=== PATIENT | male | born 1940 | race Caucasian/White ===

== ENCOUNTER 2016-07-08 09:55 | Outpatient (CLI) | payer MEDICARE, OTHER ==
[~2016-07-08] VITALS: Ht 175.3 cm; Wt 88.2 kg
--- NOTE | ~2016-07-08 | HEMODYNAMI ---
PATIENT:EDWIGE BUCKNER MEDICAL RECORD: [id number] : 44 LOCATION:[facility] ADMISSION DATE: 07/08/16 Generatedon:07/08/201613:11 Patient name: EDWIGE BUCKNER Patient #: [id number] SSN: : 1940 Date of study: 07/08/2016 Page: Of Hemodynamic Procedure Report Patient Data Patient Demographics Procedure consent was obtained First Name: EDWIGE Gender: Male Last Name: SITA : 1940 Middle Initial: A Age: 75 year(s) Patient #: [id number] Race: Unknown Additional ID: [id number] Contact details Address: [address] [place] [address] State: [place] City: [facility] [place] Zip code: [address] Past Medical History History of disease Date Diagnosis Comments CAD Allergies: No known allergies Admission Admission Data Admission Date: 07/08/2016 Admission Time: 9:55 Height (in.): 69 Height (cm.): 175.26 Lab Results Lab Result Date: 07/08/2016 Lab Result Time: 0:00 Biochemistry Name Units Result Min Max BUN mg/dl 12 --(-*--)-- 7 18 Creatinine mg/dl 1.2 --(---*)-- 0.6 1.3 CBC Name Units Result Min Max Hemoglobin g/dl 16.1 --(--*-)-- 13.5 17.5 Procedure Procedure Types Cath Procedure Diagnostic Procedure LHC LHC w/Coronaries w/Grafts Miscellaneous Procedures Moderate Sedation up to 15 minutes Procedure Description Procedure Date Procedure Date: 07/08/2016 Procedure Start Time: 13:01 Procedure End Time: 13:08 Procedure Staff Name Function Matt Carlin MD Performing Physician Dieter Mohr RT Scrub Kathie Dill RN Nurse Carlos Magallon RT Monitor Procedure Data Cath Procedure Fluoroscopy Diagnostic fluoroscopy Total fluoroscopy Time: 1.7 time: 1.7 min min Diagnostic fluoroscopy Total fluoroscopy dose: 331 dose: 331 mGy mGy Contrast Material Contrast Material Type Amount (ml) Isovue 300 66 Entry Location Entry Primary Successful Side Size Upsize Upsize Entry Closure Succes sful Closure Location (Fr) 1 (Fr) 2 (Fr) Remarks Device Remarks Femoral Right 5 Fr Vascade artery Closure System Diagnostic catheters Device Type Used For End Catheter Placement Cordis 5Fr Pigtail LV Angiography Catheter (MP) Cordis 5Fr JL 4.0 Left Coronary Catheter (MP) Angiography Cordis 5Fr 3DRC Catheter SVG Angiography (MP) Diagnostic Infinity 5Fr SVG Angiography AR 2 MOD catheter Procedure Complications No complications Procedure Medications Medication Administration Route Dosage Oxygen NC 2 l/min Heparin Flush Bag added to field 2 bags (1000units/500ml NS) Lidocaine 2% added to field 20 Versed I.V. 1 mg Fentanyl I.V. 50 mcg Versed I.V. 1 mg Fentanyl I.V. 50 mcg Versed I.V. 0.5 mg Fentanyl I.V. 50 mcg Hemodynamics Rest HGB: 16.1 (g/dl) Heart Rate: 81 (bpm) Snapshots Pre Cath Intra NCS Post Cath Vital Signs Time Heart Resp SPO2 NIBP (mmHg) Rhythm Pain Sedation Rate (ipm) (%) Status Level (bpm) 12:45:39 71 16 100 153/93(136) NSR 0 (11) 10(A) , No pain 12:49:51 75 15 100 143/91(124) NSR 0 (11) 10(A) , No pain 12:54:07 76 17 97 138/79(107) NSR 0 (11) 10(A) , No pain 12:58:25 76 16 97 124/71(104) NSR 0 (11) 10(A) , No pain 13:02:37 79 16 99 123/74(92) NSR 0 (11) 10(A) , No pain 13:06:43 87 16 98 133/83(118) NSR 0 (11) 10(A) , No pain 13:08:52 86 18 98 142/82(116) NSR 0 (11) 10(A) , No pain Medications Time Medication Route Dose Verified Delivered Reason Notes Effec tiveness by by 12:47:04 Oxygen NC 2 Matt Vázquez Per l/min Tesfaye Dill RN physician 12:47:11 Heparin Flush added 2 Matt Gutierrez used for Bag to bags Tesfaye Carlin MD procedure (1000units/500ml field NS) 12:47:17 Lidocaine 2% added 20ml Matt Matt used for to vial Tesfaye Carlin MD procedure field 12:55:02 Versed I.V. 1 mg Matt Kathie for Tesfaye Dill RN sedation 12:55:07 Fentanyl I.V. 50 Matt Kathie for mcg Tesfaye Dill RN sedation 12:57:10 Versed I.V. 1 mg Matt Kathie for Tesfaye Dill RN sedation 12:57:13 Fentanyl I.V. 50 Matt Kathie for mcg Tesfaye Dill RN sedation 12:59:15 Versed I.V. 0.5 Matt Kathie for mg Tesfaye Dill RN sedation 12:59:31 Fentanyl I.V. 50 Matt Kathie for mcg Tesfaye Dill RN sedation Procedure Log Time Note 12:30:13 Dieter Mohr RT(R) sent for patient. Start room use. 12:34:00 ACC Patient presents with Stable Angina CCS Anginal Class 2--Slight limitation of ordinary activity. 12:34:02 Diagnostic Cath status Elective 12:34:21 Time tracking: Regular hours 12:34:26 Plan of Care:Hemodynamics will remain stable., Cardiac rhythm will remain stable., Comfort level will be maintained., Respiratory function will remain adequate., Patient/ family verbilizes understanding of procedure., Procedure tolerated without complication., Recovers from procedure without complications.. 12:37:57 Patient allergic to No known allergies 12:38:14 Patient Height : 175.26 inches 12:42:29 Patient received from Pre/Post Procedure Room to CCL 2 Alert and oriented. Tansferred to table in Supine position. 12:42:31 Warm blankets applied, and roberto hugger turned on for patient comfort. 12:42:31 Correct patient and procedure confirmed by team. 12:42:32 Signed procedure consent form obtained from patient. 12:42:33 ECG and BP/O2 sat monitors applied to patient. 12:44:34 Vital chart was started 12:47:04 Oxygen 2 l/min NC was given by Kathie Dill RN; Per physician; 12:47:11 Heparin Flush Bag (1000units/500ml NS) 2 bags added to field was given by Matt Carlin MD; used for procedure; 12:47:17 Lidocaine 2% 20ml vial added to field was given by Matt Carlin MD; used for procedure; 12:50:43 Baseline sample Acquired. 12:50:45 Rhythm: sinus rhythm 12:50:46 Full Disclosure recording started 12:51:02 H&P Date Dictated: 06/30/2016 Within 30 days and on chart., H&P Addendum completed by physician on day of procedure. (MUST COMPLETE FOR ALL OUTPATIENTS). 12:51:03 Pre-procedure instructions explained to patient. 12:51:04 Pre-op teaching completed and patient verbalized understanding. 12:51:06 Family in waiting room. 12:51:08 Patient NPO since Midnight. 12:51:09 Is the patient allergic to Iodine/contrast media? No. 12:51:12 Is patient on blood thinner?Yes 12:51:17 ACC The patient was administered the following blood thiners within the last 24 hours: ACCPlavix 12:51:54 Patient diabetic? No. 12:51:55 ----Pre-sedation anethsthesia assessment.---- 12:51:58 Previous problem with sedation/anesthesia? No ? 12:52:00 Snore? Yes 12:52:01 Sleep apnea? No 12:52:02 Deviated septum? No 12:52:03 Opens mouth fully? Yes 12:52:04 Sticks out tongue? Yes 12:52:07 Airway obstruction? No ? 12:52:08 Dentures? No ? 12:52:11 Pre procedure: right dorsailis pedis pulse 1+ Palpable, but thready & weak; easily obliterated 12:52:13 Patient pain scale 0/10 ?. 12:52:19 IV patent on arrival in left antecubital with 0.9% NaCl at 10ml/hr. 12:52:41 Lab Result : BUN 12 mg/dl 12:52:41 Lab Result : Creatinine 1.2 mg/dl 12:52:41 Lab Result : Hemoglobin 16.1 g/dl 12:52:47 Lab results completed and on chart. 12:52:51 Right groin area was prepped with chlora-prep and draped in sterile fashion 12:52:52 Alarms reviewed by R. N. 12:52:52 Sharps counted by scrub and verified by R.N. 12:53:00 Use device set Femoral Dx 12:53:02 Acist Syringe opened to sterile field. 12:53:02 Bag Decanter opened to sterile field. 12:53:02 Medline Cath Pack opened to sterile field. 12:53:03 Terumo 5Fr [place] Sheath opened to sterile field. 12:53:03 St Allan 260cm J .035 wire opened to sterile field. 12:53:05 Acist Hand Control opened to sterile field. 12:53:05 Acist Manifold opened to sterile field. 12:53:06 Diagnostic Infinity 5Fr Multipack catheter opened to sterile field. 12:53:07 Tegaderm 4 x 4 opened to sterile field. 12:54:49 --------ALL STOP TIME OUT------ 12:54:50 Final Timeout: patient, procedure, and site verified with staff and physician. All members of the team are in agreement. 12:54:51 Right groin site verified by team. 12:54:54 Physical assessment completed. ASA score P 2 - A patient with mild systemic disease as per Matt Carlin MD. 12:54:57 Sedation plan: IV Moderate Sedation Versed, Fentanyl 12:55:02 Versed 1 mg I.V. was given by Kathie Dill RN; for sedation; 12:55:07 Fentanyl 50 mcg I.V. was given by Kathie Dill RN; for sedation; 12:57:10 Versed 1 mg I.V. was given by Kathie Dill RN; for sedation; 12:57:13 Fentanyl 50 mcg I.V. was given by Kathiekeon Dill RN; for sedation; 12:59:15 Versed 0.5 mg I.V. was given by Kathiekeon Dill RN; for sedation; 12:59:31 Fentanyl 50 mcg I.V. was given by Kathie Dill RN; for sedation; 13:01:15 Procedure started. 13:01:23 Local anesthetic to right femoral artery with Lidocaine 2% by Matt Carlin MD.INITIAL ACCESS ONLY 13:01:30 A 5 Fr sheath was inserted into the Right Femoral artery 13:01:42 A Cordis 5Fr Pigtail Catheter (MP) was advanced over the wire and used for LV Angiography. 13:01:51 LV angiography performed. 13:01:53 LV gram done using CALDWELL 13:01:58 EF : 50 % 13:02:00 Catheter removed. 13:02:16 A Cordis 5Fr JL 4.0 Catheter (MP) was advanced over the wire and used for Left Coronary Angiography. 13:02:19 LCA angiography performed. 13:02:56 Catheter removed. 13:03:06 A Cordis 5Fr 3DRC Catheter (MP) was advanced over the wire and used for SVG Angiography. 13:03:10 BOTELLO to LAD angiography performed. 13:04:06 RCA angiography performed. 13:04:17 Catheter removed. 13:04:23 A Diagnostic Infinity 5Fr AR 2 MOD catheter was advanced over the wire and used for SVG Angiography. 13:05:03 SVG to Circ angiography performed. 13:05:27 SVG to RCA angiography performed. 13:05:30 Catheter removed. 13:05:36 Contrast amount:Isovue 300 66ml. 13:05:47 Sheath removed intact; hemostasis achieved with Vascade Closure System to the Right Femoral artery. 13:05:56 Vascade 5Fr Closure Device opened to sterile field. 13:06:03 Procedure ended.(Physican Out) 13:06:29 Fluoroscopy time 01.70 minutes. 13:06:33 Fluoroscopy dose: 331 mGy 13:06:33 Flurop Dose total: 331 13:06:35 Sharps counted by scrub and verified by R.N. 13:06:37 Insertion/operative site no bleeding no hematoma. 13:06:40 Post-op/insertion site Right Femoral artery dressed using a 4 x 4 and Tegaderm. 13:06:43 Post right femoral artery:stable 13:06:45 Post Procedure Pulses reassessed and unchanged 13:06:49 Post procedure rhythm: sinus rhythm 13:06:51 Post procedure instruction explained to patient.Patient verbalizes understanding. 13:07:33 Procedure type changed to Cath procedure, Diagnostic procedure, LHC, LHC w/Coronaries w/Grafts, Miscellaneous Procedures, Moderate Sedation up to 15 minutes 13:08:04 Procedure and supply charges have been captured, reviewed, submitted and are correct. 13:08:08 Procedure Complication : No complications 13:08:10 Vital chart was stopped 13:08:11 See physician's report for complete and final results. 13:08:12 Report given to Pre/Post Procedure Room. 13:08:16 Patient transfered to Pre/Post Procedure Room with Stretcher. 13:08:18 Procedure ended. 13:08:18 Full Disclosure recording stopped 13:08:20 End room use (Document Last) Device Usage Item Name Manufacture Quantity Catalog Number Hospital Part Current Minima l Lot# / Charge Number Stock Stock Serial# Code Acist Acist 1 [id number] 182629 148930 249082 20 Syringe Medical [employer] Inc Bag Microtek 1 2002S 198860 57845 725702 5 Decanter Medical Inc. Medline Cardinal 1 [id number] 380348 83420 544028 5 Cath Pack Health Terumo 5Fr Terumo 1 [id number] 052969 543297 749214 [address] Allan 1 [id number] 235423 805819 242036 30 260cm J .035 wire Acist Hand Acist 1 27965 192630 026669 536655 5 Control Medical Systems Inc Acist Acist 1 46700 792158 451596 787170 5 Manifold Medical Systems Inc Diagnostic Cardinal 1 [id number] 384875 14753 508534 30 Infinity Health 5Fr Multipack catheter Tegaderm 4 3M 1 1626W 443602 703064 263571 5 x 4 Cordis 5Fr Cardinal 1 139721 5 Pigtail Health Catheter (MP) Cordis 5Fr Cardinal 1 769050 5 JL 4.0 Health Catheter (MP) Cordis 5Fr Cardinal 1 623315 5 3DRC Health Catheter (MP) Diagnostic Cardinal 1 [id number] 103570 034050 194108 20 Infinity Health 5Fr AR 2 MOD catheter Vascade Cardiva 1 [id number] 850304 78715 735050 10 5Fr Medical, Closure Inc. Device Signature Audit Crockett Stage Time Signature Unsigned Intra-Procedure 07/08/2016 Carlos Magallon 1:11:54 PM RT(R) Signatures Monitor : Carlos Magallon RT Signature : Date : Time : [facility] [address] [place] [address]
[~2016-07-08 09:55] MED LIST: ASPIRIN 81 MG E81 MG PO; CIPRO500 MG PO; CORDARONE200 MG PO; FLAGYL500 MG PO; HEMOCYTE PLUS1 CAP PO; IMDUR30 MG PO; NIASPAN1000 MG PO; NORCO 5/325 TAB1 TA1 PO; PEPCID20 MG PO; PLAVIX75 MG PO; PRAVACHOL80 MG PO; PREVALITE POWD231 GM PO; PROTONIX40 MG PO; ZEBETA5 MG PO
[2016-07-08] MEDS ORDERED: HYDROCHLOROTHIA25 MG GT (10:09)
[2016-07-08] MEDS ORDERED: PLAVIX75 MG PO (10:11)
[2016-07-08 10:18] VITALS: BP 137/78; Ht 175.3 cm; Wt 88.2 kg
[2016-07-08 10:30] LABS: BASOPHILS 0.5 % (0.0-2.0); EOSINOPHILS 3.2 % (0-7); HEMATOCRIT 46.3 % (42.0-54.0); HEMOGLOBIN 16.1 g/dL (13.5-17.5); IMMATURE GRANULOCYTES 0.3 % (0-5); LYMPHOCYTES 22.4 % (15-50); MCH 29.4 pg (26.0-34.0); MCHC 34.8 g/dL (31.0-37.0); MCV 84.5 fL (80.0-100.0); MEAN PLATELET VOLUME 10.7 fL (7.4-10.4); MONOCYTES 11.5 % (2-11); NEUTROPHILS 62.1 % (40-80); PLATELET COUNT 150 10x3/uL (130-400); RBC 5.48 10x6/uL (4.20-6.10); RDW 13.2 % (11.5-14.5); WBC 6.3 10x3/uL (4.8-10.8)
[2016-07-08 10:44] LABS: CALCIUM 9.1 mg/dL (8.5-10.1); CARBON DIOXIDE 30.9 mmol/L (21.0-32.0); CREATININE - SERUM 1.2 mg/dL (0.6-1.3); POTASSIUM - SERUM 3.9 mmol/L (3.5-5.1)
--- NOTE | 2016-07-08 13:20 | NUR ---
HR 75 CHEST PAIN DENIED BP 107/73 NO DISTRESS NOTED. 5 FR VASCADE R/GROIN CDI NO BLEEDING NO HEMATOMA NOTED INSTRUCTED PATIENT TO KEEP HEAD FLAT ON PILLOW WITH RLE STRAIGHT 1400 RESTING QUIETLY WITH EYES CLOSED NO DISTRESS NOTED 5 FR VASCADE R/GROIN CDI NO BLEEDING NO HEMATOMA NOTED
--- NOTE | 2016-07-08 14:17 | NUR ---
5 FR VASCADE R/GROIN CDI NO BLEEDING NO HEMATOMA NOTED VSS WITH CHEST PAIN DENIED SANDWICH AND WATER TO BEDSIDE
--- NOTE | 2016-07-08 14:45 | NUR ---
HOB ELEVATED 30 DEGREES. SANDWICH TRAY GIVEN. VSS.
--- NOTE | 2016-07-08 15:03 | NUR ---
RIGHT FA PIV D/C'D WITH CATHETER INTACT, BAND AID TO SITE. UP TO GET DRESSED.
--- NOTE | 2016-07-08 15:10 | NUR ---
UP TO RESTROOM TO VOID.
--- NOTE | 2016-07-08 15:15 | NUR ---
DISCHARGE INSTRUCTIONS GIVEN, VERBALIZED UNDERSTANDING. TAKEN OUT VIA WHEELCHAIR BY CATH SECURITY ANALYST. LEFT FACILITY WITH FAMILY MEMBER AND ALL PERSONAL BELONGINGS.
--- NOTE | 2016-07-11 10:08 | OP ---
PATIENT NAME: EDWIGE BUCKNER MEDICAL RECORD: [id number] :44 LOCATION:[facility] ADMISSION DATE: SURGEON: NELLIE BETTENCOURT MD DATE OF OPERATION: 07/08/2016 PROCEDURES: 1. Left heart catheterization. 2. Selective coronary angiography. 3. Left ventriculogram. 4. Vein graft angiography. 5. BOTELLO angiography. INDICATION: Angina and coronary artery disease. PROCEDURE IN DETAIL: After informed consent was obtained and after a detailed explanation of risks, benefits as well as alternative therapies, the patient elected to proceed with angiogram and angioplasty, then heart catheterization. The right femoral area was prepped and draped in a normal sterile fashion. The right femoral artery was cannulated via modified Seldinger technique with placement of 6-Croatian sheath. All catheters exchanged through this sheath. FINDINGS: Left ventriculogram was performed in standard 30-degree CALDWELL view, reveals good cardiac wall motion, ejection fraction 55% to 60%. SELECTIVE CORONARY ANGIOGRAPHY: 1. Left main has 70% stenosis. 2. The left anterior descending was grafted with a patent BOTELLO graft, the distal LAD is widely patent. 3. Left circumflex is grafted with patent vein graft, the distal circumflex is widely patent. 4. Right coronary artery has got an 80% stenosis in the mid vessel. 5. Vein graft to the right coronary artery is widely patent. OVERALL IMPRESSION: Wide patency of all previous bypass graft with no disease elsewise or distal to the bypass grafts and preserved left ventricular function. Continue medical management of the coronary artery disease and cardiac risk factors. TRANSINT:[id number] Voice Confirmation ID: [id number] DOCUMENT ID: [id number] NELLIE BETTENCOURT MD at 1008 CC: [id number] DICTATION DATE: 07/08/16 1314 CARE TRANSITION COORDINATOR: 07/08/16 1940 DEP CLI 07/08/16 [place] [id number] [place] [id number]
== END 2016-07-08 13:15 | disposition home or self-care (01) ==
LOC: D.CATH 09:55
PROVIDERS: Internal Medicine Interventional Cardiology
DX: I25.119 Atherosclerotic heart disease of native coronary artery with unspecified angina pectoris (principal); Z95.1 Presence of aortocoronary bypass graft

== ENCOUNTER → 2016-11-15 07:31 | Outpatient (CLI) | payer MEDICARE, OTHER ==
[2016-07-08 10:18] VITALS: BMI 28.7
[~2016-11-15 07:31] MED LIST changes: +HYDROCHLOROTHIA25 MG GT
== END | disposition home or self-care (01) ==
LOC: D.CT 07:31
DX: R07.9 Chest pain, unspecified (principal)

== ENCOUNTER → 2016-12-20 10:59 | Outpatient (CLI) | payer MEDICARE, OTHER ==
[2016-07-08 10:18] VITALS: BMI 28.7
== END | disposition home or self-care (01) ==
LOC: D.RAD 12-15 10:15
DX: M54.5 Low back pain (principal); M54.6 Pain in thoracic spine

== ENCOUNTER → 2016-12-26 08:56 | Outpatient (CLI) | payer MEDICARE, OTHER ==
[2016-07-08 10:18] VITALS: BMI 28.7
== END | disposition home or self-care (01) ==
LOC: D.MRI 08:56
DX: S22.009A Unspecified fracture of unspecified thoracic vertebra, initial encounter for closed fracture (principal)